=== PATIENT | female | born 1975 | race Caucasian/White ===

== ENCOUNTER → 2017-06-26 14:41 | Outpatient (CLI) | payer OTHER, SELFPAY ==
[2017-06-26 16:12] LABS: Bacteria 0 SEEN /hpf (None Seen); Mucous, Urine 0 SEEN /hpf (<or=2+); Red Blood Cells-Urine 0 SEEN /hpf (0-5); Squamous Epithelial Cells - UA 0 SEEN /hpf (5-10)
[2017-06-26 16:22] LABS: Color, Urine Straw (Yellow); Glucose, Dipstick Normal (Normal); Ketone-Dipstick Negative (Negative); Leukocyte Esterase-Dipstick 100 /ul (Negative); Nitrite-Dipstick Negative (Negative); Occult Blood-Urine 25 /ul (Negative); Protein-Dipstick Negative (Negative); Specific Gravity, Urine 1.005 (1.002-1.030); Urine Bilirubin Dipstick Negative (Negative); Urine Clarity Clear (Clear); Urine Urobilinogen Normal (Normal); Urine pH 6.5 (5.0 - 8.0)
[2017-06-26 16:37] LABS: White Blood Cells 0-5 SEEN /hpf (0-5)
== END ==
PROVIDERS: Visit Provider Physician Assistant Surgical
DX: R35.0 Frequency of micturition (principal)
CPT/HCPCS: 81001; 87086; 87088; 87186

== ENCOUNTER 2018-06-21 17:15 | Observation (INO) | payer OTHER, SELFPAY ==
[2018-06-21] VITALS (9 sets, daily range): BP systolic 114–131; BP diastolic 58–82; PULSE 76–96; RESP 12–18; TEMP 36.6; O2SAT 93–96; BMI 28.6; BMI 28.2
--- NOTE | 2018-06-21 17:29 | EKG12_ITS ---
Test Reason : CP Blood Pressure : / mmHG Vent. Rate : 082 BPM Atrial Rate : 082 BPM P-R Int : 176 ms QRS Dur : 084 ms QT Int : 388 ms P-R-T Axes : 034 026 048 degrees QTc Int : 453 ms Normal sinus rhythm Normal ECG Confirmed by DEBBY ROWELL, LIZBET ([id number]), content editor SHOSHANA SINGH ([id number]) on 06/26/2018 8:42:54 AM Referred By: DAVI/DEMETRI Confirmed By:LIZBET GUARDADO MD
--- NOTE | 2018-06-21 17:32 | RAD_ITS ---
STUDY: X-RAY CHEST REASON FOR EXAM: Female, 43 years old. Chest pain. TECHNIQUE: Single AP portable view of the chest. COMPARISON: January 16, 2017. FINDINGS: Telemetry wires overlie the chest. The lungs are clear and expanded. There is no demonstrated pleural abnormality. Normal size heart. Normal mediastinum and luciana. Normal visualized pulmonary arteries. Normal visualized aortic arch and descending thoracic aorta. Normal visualized thoracic spine. Normal visualized ribs, clavicles, and shoulders. There is no demonstrated abnormality of the visualized soft tissue structures of the upper abdomen. RAD/Chest 1 View (Portable) IMPRESSION: No acute cardiopulmonary disease. Electronically Signed: Nhan Rowe DO at 17:44 EST Tel [phone], Service support ,
[2018-06-21 18:01] LABS: Anion Gap 7 (5-15); BUN 13 mg/dL (7-18); BUN/Creat Ratio 19.4 RATIO (10-20); Chloride 108 mmol/L (98-107); Creatinine, Serum 0.67 mg/dL (0.55-1.02); EST Glomerular Filtration Rate 102 mL/min (>60); Est Glom Filt Rate - Afr Amer 123 mL/min (>60); Estimated Creatinine Clearance 85.63 ml/min; Glucose 77 mg/dL (74-106); Potassium 3.5 mmol/L (3.5-5.1); Sodium Level 140 mmol/L (136-145)
[2018-06-21] MEDS: Aspirin 81 MG TAB.CHEW 324 MG PO (18:21)
[2018-06-21 18:22] LABS: Absolute Neutrophil Count 7.8 X10^3/uL (2.0-7.7); Basophil# 0.05 X10^3/uL; Basophil% 0.4 % (0-1); Eosinophil# 0.46 X10^3/uL; Eosinophils% 3.4 % (0-5); Hematocrit 39.5 % (37-47); Lymphocyte % 32.8 % (19-41); Mean Corpuscular Volume 82.1 fL (81-99); Mean Platelet Vol. 11.2 fl (6.2-12.0); Monocyte# 0.71 X10^3/uL; Monocyte% 5.3 % (0-10); Neutrophil # 7.77 X10^3/uL (2.7-7.7); Neutrophil % 57.9 % (47-70); Platelet Count 240 K/mm3 (150-450); RBC Distribution Width CV 14.8 % (11.6-14.6); RBC Distribution Width SD 42.3 fl (35.1-43.9); Red Blood Count 4.81 M/mm3 (4.2-5.4); White Blood Count 13.4 K/mm3 (4.4-11.0)
[2018-06-21 18:31] LABS: D-Dimer Quantitative (DVT/PE) < 0.27 FEU/ug/m (0.27-0.49)
[2018-06-21 18:34] LABS: Differential Indicated SCAN CRITERIA MET; POSITIVE COUNT YES; POSITIVE DIFFERENTIAL NO; POSITIVE MORPHOLOGY NO
[2018-06-21 18:40] LABS: Hemoglobin 14.4 g/dl (12.0-15.0); Mean Corpuscular Hgb 29.9 pg (27.0-32.0)
[2018-06-21 18:41] LABS: Mean Corp Hgb Conc 36.4 g/gl (32-36)
[2018-06-21 18:46] LABS: Platelet Estimate ADEQUATE (ADEQ); Red Cell Morphology NORM C+C NORMAL (NORM C&C)
--- NOTE | 2018-06-21 21:26 | HP.PCM_ITS ---
Problem List (1) Chest pain Status: Acute (2) Anxiety Status: Chronic (3) Urinary tract infection Status: Resolved Qualifiers: Urinary tract infection type: acute cystitis Hematuria presence: without hematuria Qualified Code(s): N30.00 - Acute cystitis without hematuria History of Present Illness Date of Admission: 06/21/18 Chief Complaint: chest Pain The patient is a 43 year old F with a significant history of tobacco abuse; anxiety and chronic low back pain who presented with 3-day history of progressively worsening severe continuous chest pain that increases with taking a deep breath and laughing. Her chest pain is ameliorated with holding her breath. Her chest pain is located in the left side of her chest and it radiates to her left side going to her back. She described the pain as a constant pressure. Because of the pain she has been guarding her left chest. She denies any heart disease in the family except one person in her paternal line who had a heart disease in his 70s Past Medical History Past Medical History (Chronic Problems): Chronic Problems (Last Reviewed 06/21/18 @ 23:03 by Lauri Miranda MD) Anxiety (Chronic) Medical History: Medical History (Last Reviewed 06/21/18 @ 23:03 by Lauri Miranda MD) Back pain M54.9 Allergies amoxicillin [From Augmentin] Allergy (Verified 06/21/18 17:16) Angioedema clavulanic acid [From Augmentin] Allergy (Verified 06/21/18 17:16) Angioedema Sulfa (Sulfonamide Antibiotics) Allergy (Verified 06/26/17 08:45) Other Home Medications: Ambulatory Orders Medication Instructions Recorded Sertraline HCl [Zoloft] 100 mg PO DAILY 05/30/17 Cetirizine HCl [Zyrtec] 10 mg PO DAILY 06/21/18 Lysine 500 mg PO DAILY 06/21/18 Meloxicam 7.5 mg PO DAILY 06/21/18 Surgical History: Surgical History (Last Reviewed 06/22/18 @ 01:19 by Lauri Miranda MD) History of lumpectomy of left breast Z98.890 History of tonsillectomy Z90.89 Hx of section Z98.891 Lives: With Family Smoking Status: Current every day smoker Alcohol: Rare - *Family History Paternal Family History: Family History (Last Reviewed 06/21/18 @ 23:06 by Lauri Miranda MD) Other Asthma Cancer Diabetes Heart disease Thyroid disorder Review of Systems Constitutional: Denies: Chills, Fever, Weight Change HEENT: Denies: Head Aches, Sinus Congestion, Sinus Drainage Cardiovascular: Reports: Chest Pain. Denies: Palpitations Respiratory: Denies: Cough, Shortness of breath at rest, Sputum production Gastrointestinal: Denies: Abdominal Pain, Nausea, Vomiting Genitourinary: Denies: Dysuria Musculoskeletal: Denies: Joint Pain, Joint Tenderness Skin: Denies: Rash, Wounds Neurological: Denies: Numbness, Tingling, Focal weakness Psychiatric: Reports: Anxiety. Denies: Depression, Homicidal Ideations, Suicidal Ideations Hematologic/ Lymphatic: Denies: Easy Bruising, Easy Bleeding VTE Information - Inpt Only VTE Present on Admission: No VTE Mechan Device Prophylaxis: None VTE Pharm Prophylaxis ordered?: Yes Patient Problems: Active and Suspected Problems (Last Reviewed 06/21/18 @ 23:03 by Lauri Miranda MD) Chest pain (Acute) - Physical Exam General: Alert, Oriented x3, Cooperative HEENT: Atraumatic, PERRLA, EOMI, Normocephalic Neck: Supple, No JVD, Negative Carotid Bruits Lungs: Clear to auscultation, Normal air movement Cardiovascular: Regular rate, No murmurs Abdomen: Bowel Sounds Present, Soft, Non Tender Extremities: No edema, Capillary Refill Less than 3 Seconds Skin: No rashes, No breakdown Musculoskeletal: No Tenderness to Palpation of Joints or Extremities Neurological: Neuro grossly intact Psych/Mental Status: Normal Affect, Appropriate Vital Signs Temp Pulse Resp BP Pulse Ox 97.8 F 76 12 119/61 96 06/21/18 17:17 06/21/18 21:06 06/21/18 21:06 06/21/18 21:06 06/21/18 21:06 Oxygen Delivery Method Room Air Weight: 71 kg Body Mass Index (BMI) 28.6 Laboratory Tests Past 24 Hrs 06/21/18 06/21/18 06/21/18 17:27 17:27 17:27 WBC 13.4 H RBC 4.81 Hgb 14.4 Hct 39.5 MCV 82.1 MCH 29.9 MCHC 36.4 H RDW 14.8 H RDW Differential 42.3 Plt Count 240 MPV 11.2 Immature Gran % (Auto) 0.200 Neut % (Auto) 57.9 Lymph % (Auto) 32.8 [place] % (Auto) 5.3 Eos % (Auto) 3.4 Baso % (Auto) 0.4 Absolute Neuts (auto) 7.8 H Absolute Lymphs (auto) 4.40 Total Counted Not Reportable Platelet Estimate ADEQUATE RBC Morphology NORM C+C D-Dimer Quant (PE/DVT) < 0.27 L Sodium 140 Potassium 3.5 Chloride 108 H Carbon Dioxide 25.0 Anion Gap 7 BUN 13 Creatinine 0.67 Estim Creat Clear Calc 85.63 Est GFR (MDRD) Af Amer 123 Est GFR (MDRD) Non-Af 102 BUN/Creatinine Ratio 19.4 Glucose 77 Calcium 9.0 Troponin I < 0.015 Assessment/Plan All Active Problems (Last Reviewed 06/21/18 @ 23:03 by Lauri Miranda MD) Chest pain (Acute) Urinary tract infection (Resolved) The patient is a 43 year old F with a significant history of anxiety and chronic low back pain who presented with 3-day history of progressively worsening severe continuous chest pain. Chest pain Admit to a monitored bed on PCU CXR independently reviewed confirms no acute cardiopulmonary process. EKG independently reviewed confirms no ST or T wave abnormalities. Received aspirin 325 mg and Toradol at emergency department. ASA 81 mg p.o. daily SL NTG 0.4 mg prn as needed for chest pain Morphine as needed for pain We will check lipid panel. High intensity statin x1 dose ordered. Serial cardiac enzymes Stat EKG as needed for chest pain Treadmill stress test in the AM if the cardiac enzymes are negative Hold home meloxicam. Allergies Claritin continue Tobacco abuse She smokes a third of a pack a day. Counseled Nicotine patch ordered. Anxiety disorder Zoloft continue DVT prophylaxis Subcutaneous Lovenox Code Visit OBSV E&M: 23871 Initial observation care L3
[2018-06-21] MEDS: Ketorolac 30 MG/ML Syringe IV (21:31)
--- NOTE | 2018-06-21 22:45 | EKG12_ITS ---
Test Reason : ADMIT Blood Pressure : / mmHG Vent. Rate : 074 BPM Atrial Rate : 074 BPM P-R Int : 192 ms QRS Dur : 080 ms QT Int : 410 ms P-R-T Axes : 039 053 060 degrees QTc Int : 455 ms Normal sinus rhythm Normal ECG When compared with ECG of 21-JUN-2018 17:26, MANUAL COMPARISON REQUIRED, DATA IS UNCONFIRMED Confirmed by DEBBY ROWELL, LIZBET ([id number]), continuity editor SHOSHANA SINGH ([id number]) on 06/29/2018 9:05:16 AM Referred By: Confirmed By:LIZBET GUARDADO MD
[2018-06-21] MEDS: Atorvastatin Calcium 80 MG Tablet PO (23:20)
--- NOTE | 2018-06-21 23:37 | ED.VISSUMM ---
- ER Visit Summary Date of Service: 06/21/18 Chief Complaint: Chest pain History of Present Illness: The patient is a 43 F with a 3-day history of left-sided chest pain. She describes as an aching, heaviness, and pressure. It seems to be beneath the left breast. It is not reproducible palpation over her chest wall. Patient has had very minimal cough with no shortness of breath. She has not had fever. Physical Examination: Vital signs unremarkable. Patient sitting upright in bed. She appears uncomfortable and is holding her left chest. Heart is regular rate and rhythm. Lung sounds clear. There is no reducible chest wall tenderness. No crepitus. Abdomen is soft and nontender. Lower extremity examination was no calf tenderness or edema. Test Results: Chest x-ray shows no acute disease. EKG is sinus 82 with no sign of acute ischemia. CBC was a white count of 13.4 with normal differential. Chemistry studies normal. Troponin and d-dimer are both negative. Emergency Department Course and Treatment: Patient received aspirin and IV fluids. She declined narcotics for pain control. She did allow me to give her a dose of Toradol. This time patient continues to have significant pain. She has a strong family history of cardiac disease. I will speak with hospitalist for observation and further testing. Treatment Plan: [] Disposition: Admit Impression: Chest pain This note was generated with [employer] dictation software. It may contain incorrect words, spelling, and punctuation that were not noted in review of the chart prior to signing ED Disposition - Plan for ED Patient: Disposition: Acute [facility]
[2018-06-22] VITALS (8 sets, daily range): BP systolic 91–104; BP diastolic 54–57; PULSE 74–92; RESP 14–16; TEMP 36.6–36.9; O2SAT 93–97
[2018-06-22 05:44] LABS: International Normalized Ratio 1.1; Prothrombin Time (Protime)PT. 13.5 SECONDS (11.7-14.9)
[2018-06-22] MEDS: Aspirin E.C. 81 MG Tablet PO (05:44)
[2018-06-22 05:45] LABS: Partial Thromboplast Time 30.9 Seconds (24.1-36.2)
[2018-06-22 05:48] LABS: Anion Gap 9 (5-15); BUN 19 mg/dL (7-18); BUN/Creat Ratio 28.7 RATIO (10-20); Calcium,Total 8.2 mg/dL (8.5-10.1); Chloride 110 mmol/L (98-107); Cholesterol 168 mg/dL (200); Creatinine, Serum 0.66 mg/dL (0.55-1.02); EST Glomerular Filtration Rate 104 mL/min (>60); Est Glom Filt Rate - Afr Amer 126 mL/min (>60); Estimated Creatinine Clearance 82.94 ml/min; Glucose 100 mg/dL (74-106); High Density Lipoprotein 25 mg/dL; Potassium 3.8 mmol/L (3.5-5.1); Sodium Level 143 mmol/L (136-145); Triglycerides 297 mg/dL; Very Low Density Lipoprotein 59 mg/dL (5-40)
--- NOTE | 2018-06-22 05:55 | EKG12_ITS ---
Test Reason : AM Blood Pressure : / mmHG Vent. Rate : 080 BPM Atrial Rate : 080 BPM P-R Int : 172 ms QRS Dur : 080 ms QT Int : 406 ms P-R-T Axes : 030 019 036 degrees QTc Int : 468 ms Normal sinus rhythm Normal ECG When compared with ECG of 21-JUN-2018 22:35, MANUAL COMPARISON REQUIRED, DATA IS UNCONFIRMED Confirmed by DEBBY ROWELL, LIZBET ([id number]), commercial production editor SHOSHANA SINGH ([id number]) on 06/29/2018 8:57:48 AM Referred By: Confirmed By:LIZBET GUARDADO MD
[2018-06-22 07:13] LABS: Hematocrit 38.3 % (37-47); Mean Corpuscular Hgb 30.6 pg (27.0-32.0); Mean Corpuscular Volume 83.6 fL (81-99); Mean Platelet Vol. 11.2 fl (6.2-12.0); Platelet Count 211 K/mm3 (150-450); RBC Distribution Width CV 14.9 % (11.6-14.6); RBC Distribution Width SD 45.1 fl (35.1-43.9); Red Blood Count 4.58 M/mm3 (4.2-5.4); White Blood Count 9.1 K/mm3 (4.4-11.0)
[2018-06-22 07:14] LABS: Mean Corp Hgb Conc 36.6 g/gl (32-36); Scan Indicated on CBC? Y/N NO
--- NOTE | 2018-06-22 08:47 | STRESSREP_ITS ---
Stress Test Report Date: 06-22-18 Procedure: Exercise tolerance test/imaging study Indications: chest pain Consent: Per the patient Procedure: The patient exercised on a Mitch protocol for 11 minutes completing Stage III and 2 minutes of Stage IV achieving a peak heart rate of 166 bpm (93 % predicted maximal heart rate) with a peak blood pressure 150/64 mmHg and a peak MET capacity of 13 METs. The baseline ECG demonstrated normal sinus rhythm . The peak exercise ECG demonstrated no obvious ECG changes . There were no cardiac dysrhythmias pretest, during exercise, or recovery. The functional capacity was considered good . There was chronic left-sided chest discomfort pretest, during exercise, and recovery. The examination was discontinued secondary to leg discomfort . Impression: 1. Technically adequate (percent predicted maximal heart rate greater than 85%) exercise tolerance test 2. Peak exercise ECG with no obvious ECG changes 3. There were no cardiac dysrhythmias pretest, during exercise, or recovery 4. Nuclear images pending Myocardial perfusion imaging study: Technique: The patient was injected with 11.6 mCi of technetium 99m Cardiolite and subsequently rest SPECT Cardiolite nuclear imaging was obtained in the horizontal long, vertical long, and short axis views. The patient exercised on a Mitch protocol for 11 minutes completing Stage III and 2 minutes of Stage IV achieving a peak heart rate of 166 bpm (93 % predicted maximal heart rate) with a peak blood pressure 150/64 mmHg and a peak MET capacity of 13 METs. The patient was injected with 31.9 mCi of technetium 99m Cardiolite and subsequently stress SPECT Cardiolite nuclear imaging was obtained in the horizontal long, vertical long, and short axis views. A gated Cardiolite study at peak stress was obtained. Interpretation: Rest and stress SPECT Cardiolite nuclear imaging status post realignment, normalization, and attenuation correction, demonstrates the appearance of relative uniform tracer uptake and myocardial perfusion appearing within normal limits. There is end systolic thickening and brightening. The gated Cardiolite study demonstrates myocardial thickening and inward wall motion. The reported LVEF is 87 %. Impression: 1. Rest and stress SPECT Cardiolite nuclear imaging demonstrate relative uniform tracer uptake and myocardial perfusion appearing within normal limits. 2. The gated Cardiolite study reports an LVEF of 87 %. This note was generated with [employer] software. It may contain incorrect words, spelling, and punctuation that were not noted in checking the note before signing.
[2018-06-22] MEDS: Sertraline 100 MG Tablet PO (09:55)
[2018-06-22] MEDS: Loratadine 10 MG Tablet PO (09:55)
--- NOTE | 2018-06-22 11:41 | ECHOD_ITS ---
Reason For Study: Chest Pain Procedure This was a 2D Doppler, Color Flow transthoracic echocardiogram. The exam was of adequate technical quality. Exam performed portable in patient room. Left Ventricle Normal LV size. Left ventricular systolic function is normal. The estimated ejection fraction is 65 %. Transmitral doppler flow suggestive of impaired relaxation of left ventricle. No regional wall motion abnormalities noted. Right Ventricle Normal RV size. Normal systolic function. Atria Normal left atrium. Normal right atrium. No doppler evidence for ASD. Mitral Valve There is no mitral annular calcification. Normal mitral valve. Trivial mitral valve insufficiency. Tricuspid Valve Normal tricuspid valve. Trivial tricuspid valve insufficiency. Right ventricular systolic pressure estimated to be 18 mmHg. Aortic Valve Trisinus/trileaflet aortic valve. Normal aortic valve. Pulmonic Valve The pulmonic valve is not well visualized. Trivial pulmonic valve insufficiency. Great Vessels Normal sized aortic root. Pericardium/Pleural No pericardial effusion. MMode/2D Measurements & Calculations LVIDd: 4.2 cm IVSd: 0.78 cm Ao root diam: 2.5 cm LVIDs: 2.8 cm LVPWd: 0.77 cm RVDd: 3.0 cm FS: 34.6 % LAV(MOD-bp): 28.6 ml LVAd ap4: 21.7 cm2 SV(MOD-sp4): 35.5 ml LAV(MOD-bp) Indexed: 16.8 ml/m2 EDV(MOD-sp4): 51.8 ml LAV(MOD-sp2): 22.6 ml EDV(sp4-el): 52.3 ml LAV(MOD-sp4): 29.7 ml LVAs ap4: 10.6 cm2 ESV(MOD-sp4): 16.3 ml ESV(sp4-el): 16.2 ml EF(MOD-sp4): 68.5 % EF(sp4-el): 69.1 % SV(sp4-el): 36.1 ml LA A4 area: 13.8 cm2 LA dimension(2D): 3.6 cm RA A4 area: 8.5 cm2 Doppler Measurements & Calculations MV E max eusebio: 59.3 cm/sec Lat Peak E' Eusebio: 13.4 cm/sec Med Peak E' Eusebio: 5.9 cm/sec MV A max eusebio: 74.7 cm/sec E/E' lat: 4.4 E/E' med: 10.0 MV E/A: 0.79 Ao V2 max: 131.0 cm/sec LV V1 max: 101.9 cm/sec PA V2 max: 89.8 cm/sec Ao max P.9 mmHg LV V1 max P.2 mmHg Ao V2 mean: 95.9 cm/sec Ao mean P.9 mmHg Ao V2 VTI: 26.3 cm PI end-d eusebio: 95.1 cm/sec TR max eusebio: 190.4 cm/sec TR max P.5 mmHg Interpretation Summary Left ventricular systolic function is normal. The estimated ejection fraction is 65 %. Trivial mitral valve insufficiency. Trivial tricuspid valve insufficiency. Trivial pulmonic valve insufficiency. Right ventricular systolic pressure estimated to be 18 mmHg. Transmitral doppler flow suggestive of impaired relaxation of left ventricle Ordering Physician: Kari Rowell Referring Physician: [facility] Performed By: Ana Norris, ADA, RVT
[2018-06-22] MEDS: Acetaminophen 500 MG Tablet 1000 MG PO (12:03)
--- NOTE | 2018-06-22 16:21 | DCINST_ITS ---
- Discharge Diagnoses Current Active Problems: Current Active and Chronic Problems (Last Reviewed 06/21/18 @ 23:03 by Lauri Miranda MD) Chest pain (Acute) Anxiety (Chronic) Reason(s) for Visit for Discharge Instructions: Chest pain You will use the following diet at home:: Regular Your food should be the consistency of: Regular Your liquids should be the consistency of: Regular/Thin Discharge Activity: Return to Normal Activity Allergies/Adverse Reactions: Allergies amoxicillin [From Augmentin] Allergy (Verified 06/21/18 17:16) Angioedema clavulanic acid [From Augmentin] Allergy (Verified 06/21/18 17:16) Angioedema Sulfa (Sulfonamide Antibiotics) Allergy (Verified 06/26/17 08:45) Other Medications to take at Discharge Sertraline HCl [Zoloft] 100 mg PO DAILY 05/30/17 Cetirizine HCl [Zyrtec] 10 mg PO DAILY 06/21/18 Lysine 500 mg PO DAILY 06/21/18 Meloxicam 7.5 mg PO DAILY 06/21/18 Acetaminophen [Tylenol] 1,000 mg PO Q8H PRN PRN tablet 06/22/18 Nicotine [Nicoderm] 14 mg TRANSDERM. DAILY #30 patch 06/22/18 The following prescriptions were given: Nicotine [Nicoderm] 14 mg TRANSDERM. DAILY #30 patch Primary Care Physician: [facility] [Primary Care Provider] - Please follow up with your Primary Care Physician in: within 1-2 weeks Test Results: Test results from this visit will be discussed in further detail at your follow- up appointment, if applicable. Proposed Discharge Date: 06/22/18
--- NOTE | 2018-06-22 16:22 | DS.PCM_ITS ---
Discharge Date and Diagnosis - Problem List Patient Problems: Active and Suspected Problems (Last Reviewed 06/21/18 @ 23:03 by Lauri Miranda MD) Chest pain (Acute) Date of Admission: 06/21/18 Date of Discharge: 06/22/18 - Primary Discharge Diagnosis Active and Suspected Problems (Last Reviewed 06/21/18 @ 23:03 by Lauri Miranda MD) Chest pain (Acute) - Secondary Discharge Diagnosis Chronic Problems (Last Reviewed 06/21/18 @ 23:03 by Lauri Miranda MD) Anxiety (Chronic) Hospital Course and Treatment Imaging Results: 06/22/18 11:41 Echo Complete [ECHO] Stat Clinical Impression(s) from Imaging Studies Chest X-Ray 06/21/18 17:32 IMPRESSION: No acute cardiopulmonary disease. Electronically Signed: Nhan Rowe DO at 17:44 EST Tel [phone], Service support , None Operations: None Procedures: 2-D Echocardiogram, Stress test Summary of Care Provided: The patient is a 43 year old F past medical history of anxiety, nicotine dependence who comes in with complaints of chest pain going for about 3 days, located on the left side, described as constant pressure, somehow also described as pleuritic. Vitals were stable. EKG shows no acute ST-T changes. Troponins were negative. D-dimer was less than 0.27. Her admitting blood work was unremarkable. Patient underwent stress test that was negative. She continued a persistent chest pain. She had a 2D echo done that was negative. Patient Problems: Active and Suspected Problems (Last Reviewed 06/21/18 @ 23:03 by Lauri Miranda MD) Chest pain (Acute) Subjective: The day of discharge, patient had left-sided chest pain, not quite reproducible by touching, worse with deep breath. Denied any fever or chills or recent upper respiratory symptoms. - Physical Exam General: Alert, Oriented x3, Cooperative HEENT: Atraumatic, PERRLA, EOMI, Normocephalic Neck: Supple, No JVD, Negative Carotid Bruits Lungs: Clear to auscultation, Normal air movement Cardiovascular: Regular rate, Regular Rhythm, Normal S1, Normal S2, No murmurs Abdomen: Bowel Sounds Present, Soft, Non Tender, Non-Distended, No Hepato- splenomegaly Extremities: No edema Skin: No rashes, No breakdown Musculoskeletal: No Tenderness to Palpation of Joints or Extremities Lymphatic: No Cervical, Supraclavicular, or Inguinal Adenopathy Neurological: Cranial nerves II-XII grossly intact, Neuro grossly intact Psych/Mental Status: Normal Affect, Appropriate Vital Signs Temp Pulse Resp BP Pulse Ox 98.4 F 82 14 91/57 L 97 06/22/18 10:30 06/22/18 15:42 06/22/18 10:30 06/22/18 10:30 06/22/18 10:30 Oxygen Delivery Method Room Air Weight: 69.6 kg Body Mass Index (BMI) 28.2 Intake and Output for Last 24 Hours 06/20/18 06/21/18 06/22/18 23:59 23:59 23:59 Intake Total 360 / 360 50 / 50 Balance 360 / 360 50 / 50 Laboratory Tests Past 24 Hrs 06/21/18 06/21/18 06/21/18 17:27 17:27 17:27 WBC 13.4 H RBC 4.81 Hgb 14.4 Hct 39.5 MCV 82.1 MCH 29.9 MCHC 36.4 H RDW 14.8 H RDW Differential 42.3 Plt Count 240 MPV 11.2 Immature Gran % (Auto) 0.200 Neut % (Auto) 57.9 Lymph % (Auto) 32.8 [place] % (Auto) 5.3 Eos % (Auto) 3.4 Baso % (Auto) 0.4 Absolute Neuts (auto) 7.8 H Absolute Lymphs (auto) 4.40 Total Counted Not Reportable Platelet Estimate ADEQUATE RBC Morphology NORM C+C PT INR APTT D-Dimer Quant (PE/DVT) < 0.27 L Sodium 140 Potassium 3.5 Chloride 108 H Carbon Dioxide 25.0 Anion Gap 7 BUN 13 Creatinine 0.67 Estim Creat Clear Calc 85.63 Est GFR (MDRD) Af Amer 123 Est GFR (MDRD) Non-Af 102 BUN/Creatinine Ratio 19.4 Glucose 77 Calcium 9.0 Troponin I < 0.015 Triglycerides Cholesterol LDL Cholesterol VLDL Cholesterol HDL Cholesterol 06/21/18 06/22/18 06/22/18 23:05 02:15 04:55 WBC 9.1 RBC 4.58 Hgb 14.0 Hct 38.3 MCV 83.6 MCH 30.6 MCHC 36.6 H RDW 14.9 H RDW Differential 45.1 H Plt Count 211 MPV 11.2 Immature Gran % (Auto) Neut % (Auto) Lymph % (Auto) [place] % (Auto) Eos % (Auto) Baso % (Auto) Absolute Neuts (auto) Absolute Lymphs (auto) Total Counted Platelet Estimate RBC Morphology PT INR APTT D-Dimer Quant (PE/DVT) Sodium Potassium Chloride Carbon Dioxide Anion Gap BUN Creatinine Estim Creat Clear Calc Est GFR (MDRD) Af Amer Est GFR (MDRD) Non-Af BUN/Creatinine Ratio Glucose Calcium Troponin I < 0.015 < 0.015 Triglycerides Cholesterol LDL Cholesterol VLDL Cholesterol HDL Cholesterol 06/22/18 06/22/18 06/22/18 04:55 04:55 04:55 WBC RBC Hgb Hct MCV MCH MCHC RDW RDW Differential Plt Count MPV Immature Gran % (Auto) Neut % (Auto) Lymph % (Auto) [place] % (Auto) Eos % (Auto) Baso % (Auto) Absolute Neuts (auto) Absolute Lymphs (auto) Total Counted Platelet Estimate RBC Morphology PT 13.5 INR 1.1 APTT 30.9 D-Dimer Quant (PE/DVT) Sodium 143 Potassium 3.8 Chloride 110 H Carbon Dioxide 24.0 Anion Gap 9 BUN 19 H Creatinine 0.66 Estim Creat Clear Calc 82.94 Est GFR (MDRD) Af Amer 126 Est GFR (MDRD) Non-Af 104 BUN/Creatinine Ratio 28.7 H Glucose 100 Calcium 8.2 L Troponin I < 0.015 Triglycerides 297 H Cholesterol 168 LDL Cholesterol 84 VLDL Cholesterol 59 H HDL Cholesterol 25 L Discharge Diet: No Restrictions Discharge Activity: Return to Normal Activity Home Medications: Medications to take at Discharge Sertraline HCl [Zoloft] 100 mg PO DAILY 05/30/17 Cetirizine HCl [Zyrtec] 10 mg PO DAILY 06/21/18 Lysine 500 mg PO DAILY 06/21/18 Meloxicam 7.5 mg PO DAILY 06/21/18 Acetaminophen [Tylenol] 1,000 mg PO Q8H PRN PRN tablet 06/22/18 Nicotine [Nicoderm] 14 mg TRANSDERM. DAILY #30 patch 06/22/18 Following Prescrptions Were Given to Patient: Nicotine [Nicoderm] 14 mg TRANSDERM. DAILY #30 patch [facility] [Primary Care Provider] - Please follow up with your Primary Care Physician in: within 1-2 weeks Disposition: Home Minutes spent on discharge:: 40 Patient Condition:: Stable Medical Necessity - Tobacco Use Smoking Status: Current every day smoker Tobacco Use: Cigarettes Meaningful Use Info Meaningful Use Diagnoses (Choose all that apply): None applicable Code Visit OBSV E&M: 49512 Observation care discharge
== END 2018-06-22 16:54 | disposition home or self-care (01) ==
LOC: ED 18:39 → PCU 22:10
PROVIDERS: Admitting Provider Hospitalist; Emergency Provider Emergency Medicine; Visit Provider Internal Medicine
DX: R07.89 Other chest pain (principal); F41.9 Anxiety disorder, unspecified; G89.29 Other chronic pain; M54.5 Low back pain; Z79.899 Other long term (current) drug therapy; F17.210 Nicotine dependence, cigarettes, uncomplicated
CPT/HCPCS: 36415; 71045; 78452; 80048; 80061; 84484; 85025; 85027; 85379; 85610; 85730; 93005; 93017; 93306; 96374; 99218; 99283; 99406; A9500; A4216; G0378

== ENCOUNTER → 2018-07-27 15:09 | Outpatient (CLI) | payer OTHER, SELFPAY ==
[2018-07-27 09:40] VITALS: BMI 28.2
[2018-07-27 15:44] LABS: Bacteria 0 SEEN /hpf (None Seen); Mucous, Urine 0 SEEN /hpf (<or=2+); Red Blood Cells-Urine 0 SEEN /hpf (0-5)
[2018-07-27 15:51] LABS: Color, Urine Yellow (Yellow); Glucose, Dipstick Normal (Normal); Ketone-Dipstick Negative (Negative); Leukocyte Esterase-Dipstick 100 /ul (Negative); Nitrite-Dipstick Negative (Negative); Occult Blood-Urine 10 /ul (Negative); Protein-Dipstick Negative (Negative); Urine Bilirubin Dipstick Negative (Negative); Urine Clarity Clear (Clear); Urine Urobilinogen Normal (Normal)
[2018-07-27 16:43] LABS: Squamous Epithelial Cells - UA 0-5 SEEN /hpf (5-10)
[2018-07-27 16:45] LABS: White Blood Cells 0-5 SEEN /hpf (0-5)
== END ==
PROVIDERS: Referring Provider Physician Assistant Surgical; Visit Provider Physician Assistant Surgical
DX: R39.15 Urgency of urination (principal)
CPT/HCPCS: 81001; 87086; 87088; 87186

== ENCOUNTER → 2018-10-26 14:16 | Outpatient (CLI) | payer OTHER, SELFPAY ==
[2018-10-26 13:39] VITALS: BMI 28.2
[2018-10-26 15:14] LABS: Glucose, Dipstick Normal (Normal); Ketone-Dipstick Negative (Negative); Leukocyte Esterase-Dipstick 500 /ul (Negative); Mucous, Urine 0 SEEN /hpf (<or=2+); Nitrite-Dipstick Positive (Negative); Occult Blood-Urine 150 /ul (Negative); Protein-Dipstick 30 mg/dl (Negative); Urine Clarity Sl. Cloudy (Clear); Urine Urobilinogen 8 mg/dl (Normal)
[2018-10-26 15:21] LABS: Color, Urine SEE COMMENT BELOW (Yellow); Urine Bilirubin Dipstick 6 mg/dL (Negative)
[2018-10-26 15:26] LABS: Bacteria 1+ /hpf (None Seen); Red Blood Cells-Urine 10-25 SEEN /hpf (0-5); Squamous Epithelial Cells - UA 0-5 SEEN /hpf (5-10); White Blood Cells 25-50 SEEN /hpf (0-5)
== END ==
PROVIDERS: Referring Provider Physician Assistant Surgical; Visit Provider Physician Assistant Surgical
DX: R30.0 Dysuria (principal)
CPT/HCPCS: 81001; 87077; 87086; 87088; 87186

== ENCOUNTER → 2019-03-18 15:38 | Outpatient (CLI) | payer OTHER, SELFPAY ==
[2019-03-18 09:49] VITALS: BMI 28.2
[2019-03-18 16:21] LABS: Mucous, Urine 0 SEEN /hpf (<or=2+); Red Blood Cells-Urine 0 SEEN /hpf (0-5); Squamous Epithelial Cells - UA 0 SEEN /hpf (5-10)
[2019-03-18 16:34] LABS: Color, Urine Amber (Yellow); Glucose, Dipstick Normal (Normal); Ketone-Dipstick Negative (Negative); Leukocyte Esterase-Dipstick 500 /ul (Negative); Nitrite-Dipstick Positive (Negative); Occult Blood-Urine 10 /ul (Negative); Protein-Dipstick Negative (Negative); Specific Gravity, Urine 1.005 (1.002-1.030); Urine Bilirubin Dipstick 3 mg/dL (Negative); Urine Clarity Clear (Clear); Urine Urobilinogen 4 mg/dl (Normal)
[2019-03-18 16:45] LABS: Bacteria RARE /hpf (None Seen); White Blood Cells 5-10 SEEN /hpf (0-5)
== END ==
PROVIDERS: Referring Provider Nurse Practitioner Family; Visit Provider Nurse Practitioner Family
DX: R35.0 Frequency of micturition (principal)
CPT/HCPCS: 81001; 87086; 87088; 87186

== ENCOUNTER → 2020-07-30 16:13 | Outpatient (CLI) | payer OTHER, SELFPAY ==
[2019-03-18 09:49] VITALS: BMI 28.2
--- NOTE | 2020-07-30 16:17 | BI_ITS ---
MAMMOGRAPHY - BILATERAL SCREENING REASON FOR EXAM: Female, 45 years old. Routine annual screening examination. PERTINENT HISTORY: Aunt with breast cancer. Remote left excisional breast biopsy. TECHNIQUE: Digital bilateral breast cristel (3D mammographic acquisition) in the CC and MLO projections. 2-D mediolateral oblique (MLO) and craniocaudad (CC) views of both breasts were obtained. CAD: Full Field Digital Mammography with Computer Added Detection was performed. COMPARISON: Comparison is made with prior study of 08/26/2013. FINDINGS: Breast Composition: The breasts are heterogeneously dense, which may obscure small masses. There are no dominant masses or suspicious calcifications. No other significant abnormalities are identified. There has been no significant change since the prior study. BI/SCRN MAMM (CAD)W/CRISTEL BILAT IMPRESSION: Stable bilateral screening mammogram. Yearly follow-up mammogram recommended. (A) ASSESSMENT CATEGORY: BIRADS Category 1: Negative. A letter regarding these results will be sent to the patient by the facility within 30 days. Approximately 10% of breast cancers are not detected by mammography. A normal mammogram should not delay biopsy of a clinically suspicious abnormality. [id number] Electronically Signed: Ino Samuel MD at 8:04 EDT , Service support ,
== END ==
DX: Z12.31 Encounter for screening mammogram for malignant neoplasm of breast (principal)
CPT/HCPCS: 77063; 77067

== ENCOUNTER 2023-11-08 09:00 | Outpatient (CLI) | payer OTHER, SELFPAY | END 2023-11-08 23:00 | disposition home or self-care (01) | LOC: SDC 06-19 21:22 | PROVIDERS: Visit Provider Urology | DX: Z01.818 Encounter for other preprocedural examination (principal) | CPT/HCPCS: J0744 ==